=== PATIENT | female | born 1990 | race Asian ===

== ENCOUNTER 2023-11-30 21:11 | Emergency (ER) | payer MEDICAID ==
[~2023-11-30] VITALS: Ht 162.6 cm; Wt 86.2 kg
[2023-11-30 21:52] VITALS: BP_SYST 132; PULSE 78; RESP 16; TEMP 99.1; O2SAT 99
[2023-11-30 22:44] LABS: BILIRUBIN,URINE NEGATIVE (NEGATIVE); BLOOD, URINE 3+ (NEGATIVE); COLOR,URINE YELLOW (YELLOW); GLUCOSE,URINE NEGATIVE (NEGATIVE); KETONES,URINE NEGATIVE (NEGATIVE); LEUKOCYTE ESTERASE ,URINE NEGATIVE (NEGATIVE); NITRITE, URINE NEGATIVE (NEGATIVE); PROTEIN URINE NEGATIVE (NEGATIVE); UROBILINOGEN,URINE 0.2 (0.2-1.0)
[2023-11-30 22:45] LABS: CLARITY/URINE CLOUDY (CLEAR)
[2023-11-30 23:11] LABS: BACTERIA,URINE RARE /HPF (None Seen); RBC,URINE >100 /HPF (0-3)
[2023-12-01] MEDS: KETOROLAC TROMETHAMINE 30 MG VIAL IM ONE (00:56)
[2023-12-01 01:49] VITALS: BP_SYST 132; PULSE 78; RESP 16; TEMP 99.1; O2SAT 99
== END 2023-12-01 01:49 | disposition home or self-care (01) ==
LOC: SED 21:11
DX: D25.9 Leiomyoma of uterus, unspecified (principal); R10.30 Lower abdominal pain, unspecified
CPT/HCPCS: 99285; 74176; 81001; 81025; 96372; J1885; 81000; 81015